=== PATIENT | female | born 1980 | race Caucasian/White ===

== ENCOUNTER 2016-06-24 21:37 | Emergency (ER) | payer OTHER ==
[~2016-06-24] VITALS: Ht 175.3 cm; Wt 143.6 kg
[~2016-06-24 21:37] MED LIST: CLAR10T PO; CLON1TAB PO; EPIN0.3D IM; PNV1TABL72 PO; PROM25SU46 RC; ProAirHFA INH; SERT100T PO; ZAN150T PO
[2016-06-24 21:43] VITALS: BP 168/98; PULSE 87; RESP 16; O2SAT 97
--- NOTE | 2016-06-24 22:20 | ED.REPORT ---
HPI-Rash / Abscess Date of Service Jun 24, 2016 ED Provider: Gregory Paul MD This is a 35 year old female presenting to the ED complaining of irritation to L shoulder that began 3 weeks ago. Pt describes "itching and burning" of left shoulder that is progressively worsening and is now constant. The itching is now radiating to the scapula. Benadryl is not providing relief. Discomfort is causing loss of sleep. Denies rash, denies changes in clothing, medication changes, or sun exposure. Nursing Notes Stated Complaint: LEFT SHOULDER ITCHING/BURNING Chief Complaint: Skin Rash/Abscess Nursing Notes Reviewed: Yes Allergies: Coded Allergies: Penicillins (Verified Allergy, Unknown, 03/23/16) Uncoded Allergies: BEE (Allergy, Unknown, 05/02/15) Scheduled ClonazePAM-Expunged Drug, Do Not Renew! (ClonazePAM-Expunged Drug, Do Not Renew! ) 1 Mg Tablet 1 MG PO BID Epinephrine-Expunged Drug, Do Not Renew! (Epipen-Expunged Drug, Do Not Renew!) 0.3 Mg/0.3/Syringe Pen.injctr 0.3 MG IM PRN Loratadine-Expunged Drug, Do Not Renew! (Loratadine-Expunged Drug, Do Not Renew! ) 10 Mg Tablet 10 MG PO DAILY Pnv with Ca,No.72/Iron/FA ( Plus Tablet) 1 Each Tablet 1 TAB PO DAILY Ranitidine 150 MG Tablet (Zantac 150 MG Tablet) 150 Mg Tab 150 MG PO BID Sertraline-Expunged Drug, Choose New Med! (Sertraline-Expunged Drug, Choose New Med!) 100 Mg Tablet 200 MG PO DAILY Scheduled PRN Albuterol-Expunged Drug, Do Not Renew! (ProAir HFA-Expunged Drug, Do Not Renew! ) 200 Puff/8.5 Gm Hfa.aer.ad 2 PUFF INH Q4-6H PRN PRN For Wheezing or Shortness of Breath Hydroxyzine Pamoate (HydrOXYzine Pamoate) 25 Mg Capsule 25-50 MG PO HS PRN PRN For Insomnia Promethazine HCl (Phenergan) 25 Mg Supp.rect 25 MG RC TID PRN PRN For Nausea General Time Seen by MD: 22:19 Chief Complaint Red area Hx Obtained From: Patient Arrived By: Walk-in Onset Occurred: More than a week ago... (3 weeks) Symptom Duration: Since onset Severity: Current: No pain currently Pertinent Negative: Pt denies other symptoms Recent Healthcare: No recent doctor visit, No recent hospitalization Similar Sx Previous: No Past Medical History Past Medical History Notes: Rh Positive reports H/O PID Past Medical History (4 living children, currently) Tobacco and Alcohol use in Reports: Asthma Past Surgical History Reports: , Tonsillectomy Family History mother had ectopic Smoking History Current Every Day Smoker Social History Alcohol Use: In recovery Drug Use: Denies drug use Other Social History: Ambulatory Status Independent Review of Systems Constitutional: Denies: Chills, Fever Respiratory: Denies: Non-productive cough, Shortness of breath GI: Denies: Abdominal pain, Nausea, Vomiting Allergy / Immune: Reports: Itching Complete sys rev & neg: except as marked. Physical Exam Initial Vital Signs Vital Signs (First) Date Time Temp Pulse Resp B/P Pulse Ox O2 Delivery O2 Flow Rate FiO2 06/24/16 21:43 37 87 16 168/98 97 Room Air Initial VS: Reviewed, Vital signs abnormal Head / Eyes: Atraumatic, Normocephalic, PERRL ENT: Mucous membranes moist, Conjunctiva normal, No scleral icterus Neck: Supple, Non-tender, Full range of motion Respiratory: Breath sounds normal, Clear to auscultation, No respiratory distress Cardiovascular: Regular rate & rhythm, Heart sounds normal, Intact distal pulses Extremities: Vascular intact, Neuro intact, No swelling, No tenderness Neurologic: Alert, Oriented, Nonfocal Psychiatric: Mood/affect normal, Behavior normal, Normal thought content General/Constitutional: Awake, Alert Skin: Color NL, No rash, Warm, Dry Re-Eval/Medical Decision Med Decision/Clinical Course 35-year-old female who presents with erythematous rash in her left shoulder of uncertain etiology. It appears to be a contact dermatitis but she sounds like she is really explored the options for causation. She has been under extreme stress over the last year surrounding the of her . The rash was treated with triamcinolone and hydroxyzine and she will follow up with her primary doctor. Counseled Regarding: Diagnosis, Need for follow-up, When/why to return to ED Discharge & Departure Impression: Primary Impression: Pruritic erythematous rash Disposition: Home Discharge Condition All VS Reviewed: Yes Condition: Stable Patient Instructions: Contact Dermatitis (ED) Additional Instructions: The cause of the rash is not certain. Because it has a distinct and localized distribution, it seems that it may be due to some sort of contact, but you are explored that and cannot think of anything. Triamcinolone cream applied locally will be helpful in using the itching. Hydroxyzine 50 mg at bedtime will also be helpful with the itch and was sleeping. Follow-up with your regular doctor for a dermatology referral if you have continued symptoms. Referrals: Yesenia Astudillo MD (PCP) Scribe Attestation Portions of this note were transcribed by Bebeto Goodson. I, Dr. Paul personally performed the history, physical exam and medical decision-making; I reviewed and confirmed the accuracy of the information in the transcribed note. Signed by: peg Cerda. 06/24/2016, 02:00. copies to: Yesenia Astudillo MD, Howard L MD Jun 24, 2016 22:20 BEBETO GOODSON Jun 24, 2016 22:27
[2016-06-24] MEDS ORDERED: Triamcinolone 0.1% 30 Gm Cream TOPICAL ONE (22:30)
[2016-06-24] MEDS ORDERED: HYDR-3797 PO (22:45)
== END 2016-06-24 23:18 | disposition home or self-care (01) ==
LOC: SED 21:37
DX: L29.9 Pruritus, unspecified (principal); J45.909 Unspecified asthma, uncomplicated; F17.200 Nicotine dependence, unspecified, uncomplicated; Z88.0 Allergy status to penicillin; Z91.030 Bee allergy status
CPT/HCPCS: 99283; Q0177